=== PATIENT | female | born 1945 ===

== ENCOUNTER 2018-02-28 09:43 | Emergency (ER) | payer MEDICARE, MEDICAID ==
[2018-02-28 09:47] VITALS: BMI 29.9
[2018-02-28 09:48] VITALS: TEMP 97.8
[2018-02-28 11:26] LABS: BASO # 0.1 K/uL (0.0-0.2); BASO % 0.8 % (0.0-2.0); EOS # 0.4 K/uL (0.0-0.7); EOS % 5.3 % (0.0-4.0); HEMOGLOBIN 11.6 g/dL (12.0-16.0); LYMPH # 1.6 K/uL (1.0-4.3); LYMPH % 23.1 % (20.0-40.0); MEAN CELL VOLUME 76.4 fl (81.0-99.0); MEAN CORPUSCULAR HEMOGLOBIN 25.1 pg (27.0-31.0); MEAN CORPUSCULAR HGB CONC 32.8 g/dL (33.0-37.0); MEAN PLATELET VOLUME 9.9 fl (7.2-11.7); MONO # 0.7 K/uL (0.0-0.8); MONO % 10.4 % (0.0-10.0); NEUT # 4.1 K/uL (1.8-7.0); NEUT % 60.4 % (50.0-75.0); RBC 4.64 Mil/uL (3.80-5.20); RED CELL DISTRIBUTION WIDTH 15.6 % (11.5-14.5); WHITE BLOOD COUNT 6.8 K/uL (4.8-10.8)
[2018-02-28 11:31] LABS: SQUAMOUS EPITHIAL 9 /hpf (0-5); URINE BACTERIA RARE (<OCC); URINE BILIRUBIN NEGATIVE (NEGATIVE); URINE BLOOD SMALL (NEGATIVE); URINE CLARITY CLOUDY (Clear); URINE COLOR YELLOW (YELLOW); URINE GLUCOSE (UA) NEG (Normal); URINE LEUKOCYTE ESTERASE LARGE Leu/uL (Negative); URINE PROTEIN NEGATIVE (NEGATIVE); URINE UROBILINOGEN 0.2-1.0 mg/dL (0.2-1.0)
[2018-02-28 11:42] LABS: ALB/GLOB RATIO 1.1 (1.0-2.1); ALBUMIN 4.2 g/dL (3.5-5.0); CALCIUM 9.5 mg/dL (8.4-10.2)
[2018-02-28 12:16] VITALS: BP 141/75; PULSE 67; RESP 16; O2SAT 98
--- NOTE | 2018-02-28 12:25 | RAD ---
Date of service: [place] 02/28/2018 PROCEDURE: Radiographs of the Lumbar Spine. HISTORY: back pain COMPARISON: No prior. FINDINGS: BONES: Normal alignment. No listhesis. No fracture. DISC SPACES: Unremarkable. OTHER FINDINGS: None. IMPRESSION: Unremarkable radiographs of the lumbar spine.
--- NOTE | 2018-02-28 13:36 | ED PDOC ---
HPI: Back Time Seen by Provider: 02/28/18 09:58 Chief Complaint (Nursing): Back Pain Chief Complaint (Provider): low back pain History Per: Patient, [employer] (heriberto #[id number]) History/Exam Limitations: no limitations Onset/Duration Of Symptoms: Days (2-3) Quality Of Discomfort: Sharp Severity: Moderate Previous Symptoms: Back Pain Associated Symptoms: None Exacerbating Factor(s): Movement, Sitting, Standing Additional Complaint(s): 73yo female c/o low back pain central radiating to left buttock, also notes urinary burning, denies fever, weakness, numbness, trauma or weight loss. Does not palpable mass to lower back has had 'for awhile', denies pain to mass, re dness or drainage. Past Medical History Reviewed: Historical Data, Nursing Documentation, Vital Signs Vital Signs: Last Vital Signs Temp 97.8 F 02/28/18 12:15 Pulse 67 02/28/18 12:15 Resp 16 02/28/18 12:15 BP 141/75 02/28/18 12:15 Pulse Ox 98 02/28/18 12:15 - Medical History PMH: HTN, Hypercholesterolemia Denies: Chronic Kidney Disease - Family History Family History: States: Unknown Family Hx - Living Arrangements Living Arrangements: With Family - Immunization History Hx Tetanus Toxoid Vaccination: Yes Hx Influenza Vaccination: Yes Hx Pneumococcal Vaccination: Yes - Home Medications Home Medications: Ambulatory Orders Medication Instructions Recorded Omeprazole Magnesium [Prilosec Otc] 20 mg PO DAILY #30 tcp 11/16/14 Ondansetron [Zofran Tab] 4 mg PO Q8H PRN #30 tab 11/16/14 Cephalexin [cephalexin] 500 mg PO TID #15 cap 02/28/18 Ibuprofen [Motrin Tab] 600 mg PO Q6 PRN #15 tab 02/28/18 Lidocaine 5% [Lidoderm] 1 ea TD DAILY PRN #5 patch 02/28/18 - Allergies Allergies/Adverse Reactions: Allergies Allergy/AdvReac Type Severity Reaction Status Date / Time No Known Allergies Allergy Verified 02/28/18 10:07 Review of Systems ROS Statement: Except As Marked, All Systems Reviewed And Found Negative Constitutional: Negative for: Fever Cardiovascular: Negative for: Chest Pain Respiratory: Negative for: Cough, Shortness of Breath Gastrointestinal: Negative for: Vomiting, Abdominal Pain, Diarrhea Genitourinary Female: Positive for: Dysuria, Frequency Musculoskeletal: Positive for: Back Pain, Leg Pain. Negative for: Neck Pain, Shoulder Pain, Arm Pain, Hand Pain Skin: Negative for: Rash, Lesions, Jaundice Neurological: Negative for: Weakness, Numbness, Headache, Dizziness Psych: Negative for: Suicidal ideation Physical Exam - Reviewed Nursing Documentation Reviewed: Yes Vital Signs Reviewed: Yes - Physical Exam Appears: Positive for: Well, Non-toxic, No Acute Distress Head Exam: Positive for: ATRAUMATIC, NORMAL INSPECTION, NORMOCEPHALIC Skin: Positive for: Normal Color, Warm, DRY Eye Exam: Positive for: EOMI, Normal appearance, PERRL ENT: Positive for: Normal ENT Inspection Neck: Positive for: Normal, Painless ROM Cardiovascular/Chest: Positive for: Regular Rate, Rhythm Respiratory: Positive for: CNT, Normal Breath Sounds Gastrointestinal/Abdominal: Positive for: Normal Exam, Soft Back: Positive for: Normal Inspection, Vertebral Tenderness (mild lumbar), Muscle Spasm, Other (palpable ~5cm subcutaneous mobile mass lumar central no erythema or induration). Negative for: L CVA Tenderness, R CVA Tenderness Extremity: Positive for: Normal ROM. Negative for: Tenderness, Deformity Neurologic/Psych: Positive for: Alert, Oriented - Laboratory Results Result Diagrams: 02/28/18 11:10 02/28/18 11:10 - ECG O2 Sat by Pulse Oximetry: 98 Medical Decision Making Medical Decision Making: workup for back pain in elderly female initiated states gets frequent UTIs but no flank/CVA pain or tenderness labs obtained and unremarkable other than UTI on UA WBC normal palpable mass under skin lower back needs outpatient eval, unclear if PMD aware, family and patient states he is, in [place], here visiting. Rx keflex and analgesics, followup PMD and surg eval for subcutaneous mass results explained in ge[place]ian via [employer] and family member speaks thai Disposition - Clinical Impression Clinical Impression: Back pain, UTI (urinary tract infection), Subcutaneous mass of back - Patient ED Disposition Is Patient to be Admitted: No Counseled Patient/Family Regarding: Studies Performed, Diagnosis, Need For Followup, Rx Given - Disposition Referrals: Eleonora Ayala MD [Staff Provider] - Mayito Morfin MD [Staff Provider] - Disposition: Routine/Home Disposition Time: 12:50 Condition: STABLE Additional Instructions: Have the mass on your lower back evaluated by your primary doctor for surgical evaluation. Return to ER for any worse or new symptoms. Take medications as directed. ------ Espanol: Tenga la masa en la parte inferior de dalal espalda evaluada por dalal mdico primario para la evaluacin quirrgica. Vuelva a ER para cualquier sntoma peor o nuevo. [place] los medicamentos segn lo indicado. Prescriptions: Cephalexin [cephalexin] 500 mg PO TID #15 cap Ibuprofen [Motrin Tab] 600 mg PO Q6 PRN #15 tab PRN Reason: Pain, Moderate (4-7) Lidocaine 5% [Lidoderm] 1 ea TD DAILY PRN #5 patch PRN Reason: Pain, Moderate (4-7) Instructions: Urinary Tract Infections in Adults, Low Back Pain in Adults Forms: [facility] (Faroese) Print Language: FRENCH
== END 2018-02-28 13:23 | disposition home or self-care (01) ==
LOC: H.ER 09:43
DX: M54.5 Low back pain (principal); N39.0 Urinary tract infection, site not specified; R22.2 Localized swelling, mass and lump, trunk; I10 Essential (primary) hypertension; E78.00 Pure hypercholesterolemia, unspecified
CPT/HCPCS: 72114; 80053; 81003; 85025; 87086; 96374; 99284; J1885

== ENCOUNTER 2018-08-30 09:34 | Emergency (ER) | payer MEDICARE, MEDICAID ==
[2018-08-30 09:52] VITALS: TEMP 98.7
[2018-08-30 09:53] VITALS: BMI 32.2
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
[2018-08-30 12:58] VITALS: BP 125/75; PULSE 88; RESP 16; O2SAT 96
--- NOTE | 2018-08-30 15:31 | RAD ---
Date of service: 08/30/2018 PROCEDURE: Left Knee Radiographs. HISTORY: Pain. COMPARISON: None. TECHNIQUE: 2 views obtained. FINDINGS: BONES: Normal. No fracture. JOINTS: Normal. No osteoarthritis. JOINT EFFUSION: None. OTHER FINDINGS: None. IMPRESSION: Normal radiographs of the left knee.
--- NOTE | 2018-08-30 15:33 | RAD ---
Date of service: 08/30/2018 PROCEDURE: Left Wrist Radiographs. HISTORY: Posttraumatic pain left upper extremity. COMPARISON: None. TECHNIQUE: 4 views obtained. FINDINGS: BONES: Mild osteopenia. No fracture. JOINTS: Normal. No dislocation. SOFT TISSUES: Normal. OTHER FINDINGS: None. IMPRESSION: No acute findings related to/ accounting for the clinical presentation.
--- NOTE | 2018-08-30 15:33 | RAD ---
PROCEDURE: Left Hand Radiographs. HISTORY: Posttraumatic upper extremity pain. COMPARISON: None. TECHNIQUE: 3 views obtained. FINDINGS: BONES: Normal. No fracture. 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 SOFT TISSUES: Normal. OTHER FINDINGS: None. IMPRESSION: No acute findings related to/ accounting for the clinical presentation.
== END 2018-08-30 12:58 | disposition home or self-care (01) ==
LOC: H.ER 09:34
DX: S63.302A Traumatic rupture of unspecified ligament of left wrist, initial encounter (principal); S80.02XA Contusion of left knee, initial encounter; W17.89XA Other fall from one level to another, initial encounter; E11.9 Type 2 diabetes mellitus without complications; I10 Essential (primary) hypertension; E78.00 Pure hypercholesterolemia, unspecified